=== PATIENT | female | born 1965 | race Caucasian/White ===

== ENCOUNTER 2017-06-08 20:00 | Emergency (ER) | payer OTHER ==
[2017-06-08 20:50] VITALS: BP 111/72; PULSE 70; TEMP 98.7; BMI 21.7
--- NOTE | 2017-06-08 21:15 | PDOC ---
History of Present Illness - General Chief Complaint: Injury Stated Complaint: RIGHT FOOT INJURY Time Seen by Provider: 06/08/17 20:32 - History of Present Illness Initial Comments: This 52-year-old woman with a history of asthma/anxiety/bipolar disorder and chronic lower back pain/neuropathy presents with injury to her right ankle. Injury occurred 4 days ago when patient arose from a crouching position. When she stood up, her right foot was completely numb and she subsequently everted the ankle. After this, she had pain/swelling in the lateral ankle with pain on weightbearing. She did not seek medical care at that time but did elevate and ice the ankle joint. She presents tonight because she has persistent pain and swelling in the ankle. She also has noted some bruising in the heel area. No previous history of right ankle/foot injury. She denies any change in sensation /numbness or paresthesias now. Past History - Past Medical History Allergies/Adverse Reactions: Allergies Allergy/AdvReac Type Severity Reaction Status Date / Time codeine [Codeine] Allergy Verified 07/18/16 20:52 Penicillins Allergy Verified 07/18/16 20:52 Home Medications: Ambulatory Orders Risperidone [Risperdal -] 1 mg PO HS 05/10/12 Venlafaxine HCl [Effexor -] 175 mg PO HS 05/10/12 Clonazepam [Klonopin] 2 mg PO BID 06/08/17 Gabapentin [Neurontin] 300 mg PO QID 06/08/17 Ibuprofen 600 mg PO TID PRN 06/08/17 Oxycodone HCl [Oxaydo] 7.5 mg PO BID PRN 06/08/17 Anemia: Yes Asthma: Yes Cancer: No Cardiac Disorders: No CVA: No COPD: No CHF: No Dementia: No Diabetes: No GI Disorders: Yes (GALLBLADDER POLYP) Disorders: No HTN: No Hypercholesterolemia: Yes Liver Disease: Yes (FATTY LIVER) Psychiatric Problems: Yes (BIPOLAR/ANXIETY) Seizures: No Thyroid Disease: No Other medical history: CHRONIC BACK PAIN, NEUROPATHY - Surgical History Abdominal Surgery: No Appendectomy: No Cardiac Surgery: No Cholecystectomy: No Lung Surgery: No Neurologic Surgery: No Orthopedic Surgery: No - Immunization History Td Vaccination: Yes Immunization Up to Date: No - Suicide/Smoking/Psychosocial Hx Smoking Status: Yes Smoking History: Current every day smoker Number of Cigarettes Smoked Daily: 20 Information on smoking cessation initiated: Yes 'Breaking Loose' booklet given: 07/18/16 Hx Alcohol Use: No Drug/Substance Use Hx: No Substance Use Type: Opiates, Prescribed Hx Substance Use Treatment: No Review of Systems - Review of Systems Able to Perform ROS?: Yes Comments:: 12 point review of systems is negative except for what is noted in the history of present illness *Physical Exam - Vital Signs Last Vital Signs Temp Pulse Resp BP Pulse Ox 98.7 F 70 18 111/72 97 06/08/17 20:30 06/08/17 20:30 06/08/17 20:30 06/08/17 20:30 06/08/17 20:30 - Physical Exam Comments: GENERAL: Adult female, alert and oriented 3, in no acute distress HEAD: Normal with no signs of trauma. EYES: PERRLA, EOMI, sclera anicteric, conjunctiva clear. ENT: Ears normal, nares patent, oropharynx clear without exudates. Dry mucous membranes. NECK: Normal range of motion, supple without lymphadenopathy, JVD, or masses. LUNGS: Breath sounds equal, clear to auscultation bilaterally. No wheezes, and no crackles. HEART:Regular rate and rhythm, normal S1 and S2 without murmur, rub or gallop. ABDOMEN:.normal bowel sounds No guarding,tenderness or rebound.No masses No distention. EXTREMITIES: Right lower extremitymoderate edema/mild tenderness/no deformity/ faint ecchymosis of lateral malleolus ankle No edema/tenderness/ deformity/ecchymosis of foot Distal extremities warm and dry with excellent capillary refill Remainder of the extremity exam is normal NEUROLOGICAL: Cranial nerves II through XII grossly intact. Normal speech. No focal neurological deficits. MUSCULOSKELETAL: Back non-tender to palpation, no CVA tenderness SKIN: Warm, Dry, normal turgor, no rashes or lesions noted. Right ankle/foot x-ray performed and interpreted by Dr. Delatorre of the radiology staff : small calcaneal spur and osteoarthritic changes in the third medical tarsals/phalangeal joint area. There is no evidence of acute fracture or dislocation noted in the ankle or foot. Progress Note - Progress Note Progress Note: Ankle stirrup splint applied. Neurovascular function intact after application of the splint Patient was also given Gato wrap to use during the day as needed The patient should continue elevation of the ankle as much as possible over the next several days and use the splint during the day for the next week. Patient does not have an orthopedist. She was given the Latrice calderon referral information for follow-up if she has persistent pain/swelling in the ankle or foot after 7-10 days *DC/Admit/Observation/Transfer Diagnosis at time of Disposition: Right ankle sprain Qualifiers: Encounter type: sequela Involved ligament of ankle: unspecified ligament Qualified Code(s): S93.401S - Sprain of unspecified ligament of right ankle, sequela - Discharge Dispostion Disposition: HOME Condition at time of disposition: Stable - Referrals Referrals: Dave Pollard MD [Staff Physician] - 14 days Sharee Robles [Primary Care Provider] - - Patient Instructions Printed Discharge Instructions: DI for Ankle Sprain, Smoking Cessation Additional Instructions: Continue elevation of right lower leg Ankle splint/Gato wrap during the day for the next week Motrin 600 mg every 4 to 6 hours as needed; always take with food Follow-up with orthopedist (Dr. Latrice calderon) if you have persistent symptoms
== END 2017-06-08 22:41 | disposition home or self-care (01) ==
LOC: FER 20:00
PROC: 2W3QX1Z Immobilization of Right Lower Leg using Splint (ICD-10-PCS; principal; 2017-06-08)
DX: S93.401S Sprain of unspecified ligament of right ankle, sequela (principal); X58.XXXS Exposure to other specified factors, sequela; Y93.89 Activity, other specified; Y92.9 Unspecified place or not applicable; J45.909 Unspecified asthma, uncomplicated; K76.0 Fatty (change of) liver, not elsewhere classified; F17.210 Nicotine dependence, cigarettes, uncomplicated; F31.9 Bipolar disorder, unspecified
CPT/HCPCS: 73610-TC-RT; 73630-TC-RT; 99281-25

== ENCOUNTER 2018-05-15 19:17 | Emergency (ER) | payer OTHER ==
--- NOTE | 2018-05-15 19:28 | PDOC ---
History of Present Illness - General History Source: Patient Exam Limitations: No Limitations - History of Present Illness Initial Comments: 05/15/18 20:09 The patient is a 42 year old female, with a significant PMH of anemia, asthma, gallbladder polyp, HLD,fatty liver, bipolar, anxiety, chronic neck and back pain ,who presents to the emergency department with right wrist pain that began yesterday. The patient states she slipped on wet leaves and fell down a flight of brick stairs injuring her right wrist that radiates to her right arm. The patient reports losing LOC for a second and notes head feels foggy. She also mentions associated symptoms of lightheadedness, headache, neck and back pain, no relief with Ibuprofen. The patient denies chest pain, shortness of breath, numbness and tingling. Denies fever, chills, nausea, vomit. Allergies: codeine, Penicillins Past surgical history: None reported Social history: Current everyday smoker, opiates user (prescribed) but denies alcohol abuse. PCP: Sharee Robles <Marleni Cali - Last Filed: 05/15/18 20:25> <Sarita Wright - Last Filed: 05/16/18 00:20> - General Chief Complaint: Injury Stated Complaint: FELL DOWN STAIRS YESTERDAY,INJURY TO RIGHT WRIST Time Seen by Provider: 05/15/18 19:19 Past History <Marleni Cali - Last Filed: 05/15/18 20:25> - Past Medical History Anemia: Yes Asthma: Yes Cancer: No Cardiac Disorders: No CVA: No COPD: No CHF: No Dementia: No Diabetes: No GI Disorders: Yes (GALLBLADDER POLYP) Disorders: No HTN: No Hypercholesterolemia: Yes Liver Disease: Yes (FATTY LIVER) Psychiatric Problems: Yes (BIPOLAR/ANXIETY) Seizures: No Thyroid Disease: No - Surgical History Abdominal Surgery: No Appendectomy: No Cardiac Surgery: No Cholecystectomy: No Lung Surgery: No Neurologic Surgery: No Orthopedic Surgery: No - Immunization History Td Vaccination: Yes Immunization Up to Date: No - Suicide/Smoking/Psychosocial Hx Smoking Status: Yes Smoking History: Current every day smoker Number of Cigarettes Smoked Daily: 20 'Breaking Loose' booklet given: 07/18/16 Hx Alcohol Use: No Drug/Substance Use Hx: No Substance Use Type: Opiates, Prescribed Hx Substance Use Treatment: No <KyleSarita Schneider - Last Filed: 05/16/18 00:20> - Past Medical History Allergies/Adverse Reactions: Allergies Allergy/AdvReac Type Severity Reaction Status Date / Time codeine [Codeine] Allergy Verified 07/18/16 20:52 Penicillins Allergy Verified 07/18/16 20:52 Home Medications: Ambulatory Orders Risperidone [Risperdal -] 1 mg PO HS 05/10/12 Venlafaxine HCl [Effexor -] 175 mg PO HS 05/10/12 Clonazepam [Klonopin] 2 mg PO BID 06/08/17 Gabapentin [Neurontin] 300 mg PO QID 06/08/17 Ibuprofen 600 mg PO TID PRN 06/08/17 Oxycodone HCl [Oxaydo] 7.5 mg PO BID PRN 06/08/17 Diclofenac Sodium [Voltaren -] 75 mg PO BID PRN #20 tablet. 05/15/18 Review of Systems - Review of Systems Able to Perform ROS?: Yes Comments:: 05/15/18 20:12 GENERAL/CONSTITUTIONAL: No fever or chills. No weakness. HEAD, EYES, EARS, NOSE AND THROAT: No change in vision. No ear pain or discharge. No sore throat. CARDIOVASCULAR: No chest pain or shortness of breath. RESPIRATORY: No cough, wheezing, or hemoptysis. GASTROINTESTINAL: No nausea, vomiting, diarrhea or constipation. GENITOURINARY: No dysuria, frequency, or change in urination. MUSCULOSKELETAL:+Right wrist pain, +Neck pain, +back pain. SKIN: No rash NEUROLOGIC: +headache. No vertigo, loss of consciousness, or change in strength/ sensation. ENDOCRINE: No increased thirst. No abnormal weight change. HEMATOLOGIC/LYMPHATIC: No anemia, easy bleeding, or history of blood clots. ALLERGIC/IMMUNOLOGIC: No hives or skin allergy <Marleni Cali - Last Filed: 05/15/18 20:25> *Physical Exam - Vital Signs Last Vital Signs Temp Pulse Resp BP Pulse Ox 98.4 F 68 16 129/86 100 05/15/18 19:24 05/15/18 19:24 05/15/18 19:24 05/15/18 19:24 05/15/18 19:24 - Physical Exam Comments: 05/15/18 20:13 GENERAL: Awake, alert, and fully oriented, in no acute distress HEAD: No signs of trauma EYES: PERRLA, EOMI, sclera anicteric, conjunctiva clear ENT:Auricles normal inspection, hearing grossly normal, nares patent, oropharynx clear without exudates. Moist mucosa NECK: + Negative midline tenderness C3-C5. +Mild bilateral tenderness to the paraspinal cervical muscles. LUNGS: Breath sounds equal, clear to auscultation bilaterally. No wheezes, and no crackles HEART: Regular rate and rhythm, normal S1 and S2, no murmurs, rubs or gallops ABDOMEN: Soft, nontender, normoactive bowel sounds. No guarding, no rebound. No masses EXTREMITIES: +Right extremity mild generalized edema of the right hand and fingers. Mild deformity lateral to the ulnar styloid process. Mild edema to the wrist. Mild pain with supination and pronation of the arm. +Bilateral knees mild edema with minimal tenderness. No pain with passive or active flexion. NEUROLOGICAL: Cranial nerves II through XII grossly intact. Normal speech, normal gait SKIN:+2 and half cm abrasion to the lateral aspect of the anterior left knee. <Marleni Cali - Last Filed: 05/15/18 20:25> Progress Note - Progress Note Progress Note: Documentation has been prepared under my direction and personally reviewed by me in its entirety. I attest that this documented accurately reflects all work, treatment, procedures and medical decision making performed by me. <Sarita Wright - Last Filed: 05/16/18 00:20> Medical Decision Making - Medical Decision Making As noted above, this 53-year-old woman presents with a history of slipping and falling down outside brick staircase (approximately 5 stairs), falling onto concrete surface, yesterday. No clear LOC; patient was walking alone but was able to get up without assistance. She has headache, sleepiness, neck pain and right wrist discomfort. Exam as noted. Noncontrast head CT and cervical spine CT performed to evaluate for acute intracranial process or cervical spine injury. Head CT is essentially normal. Cervical spine CT shows straightening of the lordotic curve but no other significant abnormalities. Right wrist/right forearm x-rays performed. Preliminary interpretation by me: No evidence of fracture or dislocation. Clinical presentation most consistent with cervical sprain, mild concussion, right wrist and bilateral anterior knee contusions. Toradol 60 mg IM given for analgesia/anti-inflammatory properties Patient was given removable wrist splint to be used during the day for the next week. Patient states that she has an orthopedist with whom she can follow-up if she has persistent pain or swelling. Cervical soft collar also given to the patient to be used as needed. Patient asked for anti-inflammatory other than ibuprofen since she found the latter ineffective today. Prescription for diclofenac 75 mg up to twice a day as needed for pain (taken with food) sent to pharmacy. Patient was asked if she knew that she had a thyroid nodule since one was seen on her cervical spine CT. Patient states that she had never been told she had a thyroid nodule. She is been strongly advised to follow-up with her doctor within the next week for workup of this nodule. <Sarita Wright - Last Filed: 05/16/18 00:20> *DC/Admit/Observation/Transfer - Attestations Scribe Attestion: 05/15/18 20:13 Documentation prepared by Marleni Cali, acting as medical staff services manager for Sarita Wright MD. <Marleni Cali - Last Filed: 05/15/18 20:25> <Sarita Wright - Last Filed: 05/16/18 00:20> Diagnosis at time of Disposition: Neck muscle strain Qualifiers: Encounter type: initial encounter Qualified Code(s): S16.1XXA - Strain of muscle, fascia and tendon at neck level, initial encounter Contusion of right wrist Qualifiers: Encounter type: initial encounter Qualified Code(s): S60.211A - Contusion of right wrist, initial encounter Knee contusion Qualifiers: Encounter type: initial encounter Laterality: unspecified laterality Qualified Code(s): S80.00XA - Contusion of unspecified knee, initial encounter - Discharge Dispostion Disposition: HOME Condition at time of disposition: Stable - Prescriptions Prescriptions: Diclofenac Sodium [Voltaren -] 75 mg PO BID PRN #20 tablet.dr DOW Reason: Moderate Pain - Referrals Referrals: Sharee Robles [Primary Care Provider] - 1 week - Patient Instructions Printed Discharge Instructions: DI for Neck Sprain Additional Instructions: Diclofenac 75 mg twice a day as needed for pain; take with food Ice/elevate right wrist as much as possible over the next 48 hours Removable wrist splint during the day for the next week Follow-up with your orthopedist if you have persistent pain/swelling in the wrist Soft neck collar as needed Follow-up with Dr. Robles within the next week for follow-up of thyroid nodule as discussed Return to ER via worsening headache or severe neck/wrist pain - Post Discharge Activity
[2018-05-15 19:30] VITALS: BP 129/86; PULSE 68; TEMP 98.4; BMI 20.3
[2018-05-15] MEDS ORDERED: KETOROLAC TROMETHAMINE 60 MG/2 ML VIAL IM ONE (21:27)
[2018-05-15] MEDS ORDERED: KETOROLAC TROMETHAMINE 60 MG/2 ML VIAL ONE (21:31)
== END 2018-05-15 21:42 | disposition home or self-care (01) ==
LOC: FER 19:17
PROC: 2W3CX1Z Immobilization of Right Lower Arm using Splint (ICD-10-PCS; principal; 2018-05-15)
PROC: 3E0233Z Introduction of Anti-inflammatory into Muscle, Percutaneous Approach (ICD-10-PCS; 2018-05-15)
DX: S80.00XA Contusion of unspecified knee, initial encounter (principal); S60.211A Contusion of right wrist, initial encounter; S16.1XXA Strain of muscle, fascia and tendon at neck level, initial encounter; W10.9XXA Fall (on) (from) unspecified stairs and steps, initial encounter; Y93.89 Activity, other specified; Y92.9 Unspecified place or not applicable; J45.909 Unspecified asthma, uncomplicated; E78.5 Hyperlipidemia, unspecified; F31.9 Bipolar disorder, unspecified; G89.29 Other chronic pain
CPT/HCPCS: 70450-TC; 72125-TC; 73090-TC-RT-FY; 73110-TC-RT-FY; 99281-25

== ENCOUNTER 2018-09-16 19:33 | Emergency (ER) | payer OTHER ==
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
[2018-09-16 19:59] VITALS: BP 151/83; PULSE 80; TEMP 97.7; BMI 20.5
[2018-09-16 20:11] LABS: URINE APPEARANCE Clear; URINE BILIRUBIN Negative (NEGATIVE); URINE COLOR Yellow; URINE GLUCOSE (UA) Negative (NEGATIVE); URINE KETONE Negative (NEGATIVE); URINE LEUK ESTERASE TRACE (NEGATIVE); URINE NITRITE Negative (NEGATIVE); URINE PROTEIN Negative (NEGATIVE); URINE UROBILINOGEN 0.2 (0.2-1.0)
[2018-09-16 20:48] LABS: EPI CELLS FEW /HPF; URINE RBC 0-2 /hpf (0-3)
== END 2018-09-16 21:30 | disposition short-term general hospital (02) ==
LOC: FER 19:33
DX: T76.21XA Adult sexual abuse, suspected, initial encounter (principal); F17.210 Nicotine dependence, cigarettes, uncomplicated; F31.9 Bipolar disorder, unspecified; J45.909 Unspecified asthma, uncomplicated; E78.00 Pure hypercholesterolemia, unspecified
CPT/HCPCS: 81003; 81015; 99281-25

== ENCOUNTER 2018-11-04 15:23 | Emergency (ER) | payer OTHER ==
--- NOTE | 2018-11-04 15:29 | PDOC ---
History of Present Illness - General Chief Complaint: Pain Stated Complaint: FINGER PAIN, RASH, L CALF PAIN Time Seen by Provider: 11/04/18 15:28 - History of Present Illness Initial Comments: 11/04/18 15:33 53 year old woman with a history of chronic back pain, bipolar disorder/anxiety , anemia, asthma wh opresents wity h R middle digit swelling and pain for 3 days L calf pain and swelling for 10 days whcich occurred after L 5th toe fracture rash on bilateral antecubital fossa and chest that subjective fever, chills, nausea since yesterday smokes cigarettes half pack a day Past History - Past Medical History Allergies/Adverse Reactions: Allergies Allergy/AdvReac Type Severity Reaction Status Date / Time Penicillins Allergy Unknown Verified 11/04/18 15:41 codeine [Codeine] Allergy Verified 11/04/18 15:41 Home Medications: Ambulatory Orders Clonazepam [Klonopin] 2 mg PO BID 06/08/17 Cyclobenzaprine HCl [Flexeril 10 mg] 10 mg PO HS 11/04/18 Gabapentin [Neurontin] 300 mg PO BID 11/04/18 Gabapentin [Neurontin] 600 mg PO HS 11/04/18 Quetiapine Fumarate [Seroquel -] 50 mg PO HS PRN 11/04/18 Sulfamethoxazole/Trimethoprim [Bactrim Ds -] 1 tab PO BID #14 tablet 11/04/18 Venlafaxine HCl ER [Effexor Xr -] 225 mg PO HS 11/04/18 Zolpidem Tartrate [Ambien] 10 mg PO HS PRN 11/04/18 hydrOXYzine HCL [Atarax -] 25 mg PO HS 11/04/18 Anemia: Yes Asthma: Yes Cancer: No Cardiac Disorders: No CVA: No COPD: No CHF: No Dementia: No Diabetes: No GI Disorders: Yes (GALLBLADDER POLYP) Disorders: No HTN: No Hypercholesterolemia: Yes Liver Disease: Yes (FATTY LIVER) Psychiatric Problems: Yes (BIPOLAR/ANXIETY) Seizures: No Thyroid Disease: No - Surgical History Abdominal Surgery: No Appendectomy: No Cardiac Surgery: No Cholecystectomy: No Lung Surgery: No Neurologic Surgery: No Orthopedic Surgery: No - Immunization History Td Vaccination: Yes Immunization Up to Date: No - Suicide/Smoking/Psychosocial Hx Smoking Status: Yes Smoking History: Current every day smoker Have you smoked in the past 12 months: Yes Number of Cigarettes Smoked Daily: 20 'Breaking Loose' booklet given: 07/18/16 Hx Alcohol Use: No Drug/Substance Use Hx: No Substance Use Type: Opiates, Prescribed Hx Substance Use Treatment: No *Physical Exam - Physical Exam Comments: 11/04/18 16:15 + macupapular erythematous rash on anticubital fossas bilaterally and on chest R middle finger swelling erythema nad warmth from DIP to fingerstip purulent fluid collection on under side and along L lateral nailbed L calf slightly more enlarged than R and with positibe sylvie sign NV intact palpatble pulses Procedures - Incision and Drainage I&D Site: Right: Paronychia (felon ) Betadine cleansed: No (alcohol used) Anesthesia: 1% Lidocaine Volume(ml): 6 Blade Size: 11 Attempts: 1 Plain Packing: No Complications: none Dressing: Yes (gauze) - Additional Procedures Additional Procedures: other (digital block) Medical Decision Making - Medical Decision Making 11/04/18 16:16 ED Course: Finger swelling consider felon vs paronychia calf swelling r/o dvt rash consider eczema 11/04/18 18:20 ultrasound negative finger with felon will I&D *DC/Admit/Observation/Transfer Diagnosis at time of Disposition: Rash and nonspecific skin eruption, Felon of finger of right hand Calf pain Qualifiers: Laterality: left Qualified Code(s): M79.662 - Pain in left lower leg - Discharge Dispostion Disposition: HOME Condition at time of disposition: Fair Decision to Admit order: No - Prescriptions Prescriptions: Sulfamethoxazole/Trimethoprim [Bactrim Ds -] 1 tab PO BID #14 tablet - Referrals Referrals: Sharee Robles [Primary Care Provider] - Bob Pedersen MD [Staff Physician] - - Patient Instructions Printed Discharge Instructions: DI for Paronychia, DI for Incision and Drainage of a Skin Abscess Additional Instructions: You were seen in the ED for complaints of R finger swelling, L calf swelling and arm rash. In the ED you were evaluated with ultrasound that did not show any significant findings. 1) Your finger was significant for signs of infection on physical exam and you had an incision and drainage performed. You were started on antibiotics and should continue to take them twice a day for 7 days. You can wash your finger with soap and water and are advised to keep the wound clean and covered. Do not get your nails done or cut until your finger is healed. You are advised to follow up with your Primary Care Physician within 1 week. You have been given a referral with Hand Surgery and are advised to follow up within 1 week. 2) Please avoid itching your rash and take over the counter Benadryl to help relieve symptoms of itching or irritation. 3) For your calf pain, continue to follow up with Orthopedics. Return to the ED immediately if you experience worsening pain in the finger, continued drainage of blood or pus, change in color of the finger, numbness or tingling of the finger or hand or fever. - Post Discharge Activity
[2018-11-04 16:01] VITALS: BP 120/87; PULSE 73; TEMP 98.3; BMI 23.6
--- NOTE | 2018-11-04 16:20 | PDOC ---
Attending Attestation - Resident Resident Name: Erin Pruitt - ED Attending Attestation I have performed the following: I have examined & evaluated the patient, The case was reviewed & discussed with the resident, I agree w/resident's findings & plan, Exceptions are as noted - HPI HPI: 11/04/18 16:19 53y F hx of bipolar disorder, asthma, presents with multiple complaints 1) finger swelling/pain since thursday - pt notse she has had increased R middle finger pain for the past 3 days with gradually more pain/swelling. no recent trauma, but pt notes she had new gel nails placed a few weeks ago, but was fine until thursday. Since then she noticed some irritation pain that has been getting worse. denies biting her nail or recent injury/nail procedure in the several days preceding onset of pain. exam - R milddle finger exam: erhtnema/induration/swelling without signficiant warmth of tip of R middle finger, no vesicles appreciated a/p - felon noted with whitish head at tip of R middle finger 2) Calf pain x 9 days. Pt ntoes she had a toe fracture x 1- days of her L great toe - she has been having increased pain/swelling in her L calf particularly after she is walking on it alot. rest resolves her pain. denies associated sob, hemoptysis, cp, back pain, numnbess/tingling. exam: LLE - mild L calf tenderness, no swelling appreciated, neg homans sign. suspect over use injury vs dvt a/p awaiting US to r/o DVT motrin/tylenol as needed 3) rash for sevearl days after going to tanning salon and applying a lotion, itching primarily to abdomen, flexor sorfaces of b/l arms and neck. no pain, just sigifincat pruritis exam: skin - flexor surfaces - skin thickening and excoiations on R anticubital fossa , no other rashes apprciated, mild irretation/skin thickening on L flexor surfaces/anticubital fossa, and neck. 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
[2018-11-04] MEDS ORDERED: LIDOCAINE HCL 1%, 10 MG/ML (20ML VIAL) ONE (18:07)
[2018-11-04] MEDS ORDERED: SULFAMETHOXAZOLE/TRIMETHOPRIM 800MG/160MG D.S. TABLET PO ONE (18:22)
[2018-11-04] MEDS ORDERED: SULFAMETHOXAZOLE/TRIMETHOPRIM 800MG/160MG D.S. TABLET ONE (18:32)
== END 2018-11-04 18:58 | disposition home or self-care (01) ==
LOC: FER 15:23
PROC: 0H9FXZZ Drainage of Right Hand Skin, External Approach (ICD-10-PCS; principal; 2018-11-04)
DX: L03.011 Cellulitis of right finger (principal); R21 Rash and other nonspecific skin eruption; M79.662 Pain in left lower leg; F31.9 Bipolar disorder, unspecified; F41.9 Anxiety disorder, unspecified; J45.909 Unspecified asthma, uncomplicated; M54.5 Low back pain; G89.29 Other chronic pain; D64.9 Anemia, unspecified; F17.210 Nicotine dependence, cigarettes, uncomplicated; K76.2 Central hemorrhagic necrosis of liver; Z88.0 Allergy status to penicillin; Z88.5 Allergy status to narcotic agent
CPT/HCPCS: 93970-TC; 99282-25

== ENCOUNTER 2018-12-20 16:03 | Emergency (ER) | payer OTHER ==
[2018-12-20 16:13] VITALS: BP 118/83; PULSE 63; TEMP 98; BMI 21.2
[2018-12-20] MEDS ORDERED: DIPHTH,PERTUSS(ACELL),TET 0.5 ML DISP.SYRIN IM ONE ×2 (16:33→16:37)
--- NOTE | 2018-12-20 16:33 | PDOC ---
History of Present Illness - General Chief Complaint: Injury Stated Complaint: laceration to left eye lid s/p injury at home Time Seen by Provider: 12/20/18 16:15 History Source: Patient Exam Limitations: No Limitations - History of Present Illness Initial Comments: 12/20/18 16:20 53-year-old hx of anemia, astham, hl, presents with complaint of head injury. 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 Patient notes that there was some bleeding she denies any LOC, nausea, vomiting, vision changes, neck pain, numbness/tingling/ weakness, no other injuries. pt on ASA. pt denies any current headache. no other complaints does not rmember her last tetanus shot Past History - Past Medical History Allergies/Adverse Reactions: Allergies Allergy/AdvReac Type Severity Reaction Status Date / Time Penicillins Allergy Unknown Verified 12/20/18 16:05 codeine [Codeine] Allergy Verified 12/20/18 16:05 Home Medications: Ambulatory Orders Clonazepam [Klonopin] 2 mg PO BID 06/08/17 Cyclobenzaprine HCl [Flexeril 10 mg] 10 mg PO HS 11/04/18 Gabapentin [Neurontin] 300 mg PO BID 11/04/18 Gabapentin [Neurontin] 600 mg PO HS 11/04/18 Quetiapine Fumarate [Seroquel -] 50 mg PO HS PRN 11/04/18 Sulfamethoxazole/Trimethoprim [Bactrim Ds -] 1 tab PO BID #14 tablet 11/04/18 Venlafaxine HCl ER [Effexor Xr -] 225 mg PO HS 11/04/18 Zolpidem Tartrate [Ambien] 10 mg PO HS PRN 11/04/18 hydrOXYzine HCL [Atarax -] 25 mg PO HS 11/04/18 Anemia: Yes Asthma: Yes Cancer: No Cardiac Disorders: No CVA: No COPD: No CHF: No Dementia: No Diabetes: No GI Disorders: Yes (GALLBLADDER POLYP) Disorders: No HTN: No Hypercholesterolemia: Yes Liver Disease: Yes (FATTY LIVER) Psychiatric Problems: Yes (BIPOLAR/ANXIETY) Seizures: No Thyroid Disease: No - Surgical History Abdominal Surgery: No Appendectomy: No Cardiac Surgery: No Cholecystectomy: No Lung Surgery: No Neurologic Surgery: No Orthopedic Surgery: No - Immunization History Td Vaccination: Yes Immunization Up to Date: No - Suicide/Smoking/Psychosocial Hx Smoking Status: Yes Smoking History: Current every day smoker Have you smoked in the past 12 months: Yes Number of Cigarettes Smoked Daily: 10 Information on smoking cessation initiated: Yes 'Breaking Loose' booklet given: 07/18/16 Hx Alcohol Use: No Drug/Substance Use Hx: No Substance Use Type: Opiates, Prescribed Hx Substance Use Treatment: No Review of Systems - Review of Systems Able to Perform ROS?: Yes Comments:: 12/20/18 16:35 Skin: laceration on head Abd: deneis n/v neuro: no numbness/tingling/weakness, vision changes neck: denies neck pain *Physical Exam - Vital Signs Last Vital Signs Temp Pulse Resp BP Pulse Ox 98 F 63 18 118/83 99 12/20/18 16:05 12/20/18 16:05 12/20/18 16:05 12/20/18 16:05 12/20/18 16:05 - Physical Exam Comments: 12/20/18 16:36 GENERAL: The patient is awake, alert, and fully oriented, Nontoxic - in no acute distress. HEAD: Normocephalic, superficial 1.5cm horizontal laceration over L latearl supraorbital ridge. no focal bony tenderness, no active bleeding Procedures - Consent Consent obtained: Verbal - Laceration/Wound Repair Left Upper Eye Wound Length: to 2.5 cm Wound Explored: clean Wound's Depth, Shape: superficial Irrigated w/ Saline: Yes Wound Repaired With: Dermabond Medical Decision Making - Medical Decision Making 12/20/18 16:38 53y F presenting with laceration over her left supraorbital ridge peasuring approx 1.5 cm area is clean, no focal bony tenderness, normal neuro exam area cleaned/irrigated, no fb noted, margins clean/even dermabonded with good approximation will update tentanus will dc with supportive care I discussed the physical exam findings, ancillary test results and final diagnoses with the patient. I answered all of the patient's questions. The patient was satisfied with the care received and felt comfortable with the discharge plan and treatment plan. The patient will call their primary care physician within 24 hours to arrange follow-up and will return to the Emergency Department with any new, persistent or worsening symptoms. *DC/Admit/Observation/Transfer Diagnosis at time of Disposition: Laceration of face Qualifiers: Encounter type: initial encounter Qualified Code(s): S01.81XA - Laceration without foreign body of other part of head, initial encounter - Discharge Dispostion Disposition: HOME Condition at time of disposition: Improved Decision to Admit order: No - Referrals - Patient Instructions Printed Discharge Instructions: DI for Laceration Repair With Dermabond Additional Instructions: Return to the emergency department immediately with ANY new, persistent or worsening symptoms including any redness, bleeding, purulent discharge, swelling or other concerns. Keep the area clean and dry for 48 hours. Afterwards he may clean gently with soap and water. Apply bacitracin twice a day. Keep the area away from the sun for the next 9 months, please use sunscreen and wear a hat if you need to be in the sun to improve appearance of the scar. Return in 3-5 days for suture removal. You MUST call and follow up with your doctor tomorrow for further evaluation of your symptoms. Results were discussed with you. Please make sure your doctor reviews the results of your emergency evaluation. - Post Discharge Activity
== END 2018-12-20 16:57 | disposition home or self-care (01) ==
LOC: FER 16:03
PROC: 3E0234Z Introduction of Serum, Toxoid and Vaccine into Muscle, Percutaneous Approach (ICD-10-PCS; principal; 2018-12-20)
DX: S01.112A Laceration without foreign body of left eyelid and periocular area, initial encounter (principal); W20.8XXA Other cause of strike by thrown, projected or falling object, initial encounter; Y93.89 Activity, other specified; Y92.000 Kitchen of unspecified non-institutional (private) residence as the place of occurrence of the external cause; J45.909 Unspecified asthma, uncomplicated; F31.9 Bipolar disorder, unspecified; F41.9 Anxiety disorder, unspecified; K76.0 Fatty (change of) liver, not elsewhere classified; E78.5 Hyperlipidemia, unspecified
CPT/HCPCS: 90715; 99282-25

== ENCOUNTER 2019-10-05 10:17 | Emergency (ER) | payer OTHER ==
[2019-10-05 10:30] VITALS: BP 123/81; PULSE 68; TEMP 98; BMI 20.9
--- NOTE | 2019-10-05 10:57 | PDOC ---
History of Present Illness - General Chief Complaint: Headache Stated Complaint: HEADACHE Time Seen by Provider: 10/05/19 10:25 - History of Present Illness Initial Comments: 10/05/19 11:03 Chief complaint: Headache HPI: Intermittent occipital headache combined with tightness of the neck and shoulders for several days. Has been feeling increased stress due to mother who is dying of dementia and brother who has cancer. She is visiting mother in the intermediate and caring for her brother at home. A few days ago after a long drive she felt lightheaded for short period of time, also her thinking was somewhat cloudy. This resolved. Review of systems: Denies fever/chills, URI symptoms, sore throat, cough, chest pain, shortness of breath, abdominal pain, nausea, vomiting, diarrhea, visual or focal neurologic symptoms, unsteadiness of gait. Remainder of systems reviewed and negative Past medical history: Bipolar illness, migraine headaches which are controlled with Excedrin Migraine. Social history: Bipolar symptoms are well controlled on medication. The patient has a therapist whom she sees weekly. She has also been exercising regularly, 5 times per week, for the last 2 years, and finds that helpful for stress. No tobacco alcohol or other drugs. Functioning well Family history: Reviewed and noncontributory including early coronary artery disease, metabolic diseases including diabetes, neurologic diseases, cancer. Physical exam: Alert and oriented well-developed well-nourished no acute distress cheerful and cooperative Afebrile, vital signs normal PERRLA 4 mm, fundi benign with sharp disc margins and good central venous pulsations. Visual pride intact to confrontation. EOMs full without diplopia ENT clear Neck supple without bruit mass or nodes Lungs clear, full breath sounds bilaterally, no wheezes rales or rhonchi CV S1-S2 normal without murmur rub or gallop pulses full and symmetric no JVD or edema no bruits. Regular rate Abdomen soft nontender without mass organomegaly Neurological C2 to 12 intact. Strength full and symmetric. No focal sensorimotor deficits. Cerebellar function intact. Gait stable and unimpaired Extremities no CCE Skin clear, no rash, adequate turgor and wet mucous membranes Musculoskeletal: There is slight tension in the muscles of the lateral neck and trapezius areas. Impression: Occipital headache, mild, intermittent, probably resulting from stress/tension/muscle contraction. This is distinct from her migraines, which have been controlled. No sign of other neurologic disease. Plan: Relaxation techniques, rest, heat to the muscles of the neck and shoulders , Tylenol as needed. Discussed with therapist. See neurologist if no improvement or conditions worsen, or return to emergency room for further evaluation. No distress upon discharge. Past History - Past Medical History Allergies/Adverse Reactions: Allergies Allergy/AdvReac Type Severity Reaction Status Date / Time Penicillins Allergy Unknown Verified 10/05/19 10:19 codeine [Codeine] Allergy Verified 10/05/19 10:19 Home Medications: Ambulatory Orders Clonazepam [Klonopin] 2 mg PO BID 06/08/17 Cyclobenzaprine HCl [Flexeril 10 mg] 10 mg PO HS 11/04/18 Gabapentin [Neurontin] 300 mg PO BID 11/04/18 Gabapentin [Neurontin] 600 mg PO HS 11/04/18 Quetiapine Fumarate [Seroquel -] 50 mg PO HS PRN 11/04/18 Venlafaxine HCl ER [Effexor Xr -] 225 mg PO HS 11/04/18 Zolpidem Tartrate [Ambien] 10 mg PO HS PRN 11/04/18 hydrOXYzine HCL [Atarax -] 25 mg PO HS 11/04/18 Dupilumab [Dupixent] 300 mg SQ BID 10/05/19 Anemia: Yes Asthma: Yes Cancer: No Cardiac Disorders: No CVA: No COPD: No CHF: No Dementia: No Diabetes: No GI Disorders: Yes (GALLBLADDER POLYP) Disorders: No HTN: No Hypercholesterolemia: Yes Liver Disease: Yes (FATTY LIVER) Psychiatric Problems: Yes (BIPOLAR/ANXIETY) Seizures: No Thyroid Disease: No - Surgical History Abdominal Surgery: No Appendectomy: No Cardiac Surgery: No Cholecystectomy: No Lung Surgery: No Neurologic Surgery: No Orthopedic Surgery: No - Immunization History Td Vaccination: Yes Immunization Up to Date: No - Psycho Social/Smoking Cessation Hx Smoking Status: Yes Smoking History: Current every day smoker Have you smoked in the past 12 months: Yes Number of Cigarettes Smoked Daily: 20 Information on smoking cessation initiated: Yes 'Breaking Loose' booklet given: 07/18/16 Hx Alcohol Use: No Drug/Substance Use Hx: No Substance Use Type: Opiates, Prescribed Hx Substance Use Treatment: No *Physical Exam - Vital Signs Last Vital Signs Temp Pulse Resp BP Pulse Ox 98 F 68 16 123/81 100 10/05/19 10:19 10/05/19 10:19 10/05/19 10:19 10/05/19 10:19 10/05/19 10:19 Discharge - Discharge Information Problems reviewed: Yes Clinical Impression/Diagnosis: Headache Qualifiers: Headache type: tension-type Headache chronicity pattern: acute headache Intractability: not intractable Qualified Code(s): G44.209 - Tension-type headache, unspecified, not intractable Condition: Stable Disposition: HOME - Admission No - Follow up/Referral Referrals: Kyle Inman DO [Staff Physician] - 1 week - Patient Discharge Instructions Patient Printed Discharge Instructions: Understanding and Managing the Stress Response, Tension Headache - Post Discharge Activity
== END 2019-10-05 11:00 | disposition home or self-care (01) ==
LOC: FER 10:17
DX: G44.209 Tension-type headache, unspecified, not intractable (principal); F17.210 Nicotine dependence, cigarettes, uncomplicated; J45.909 Unspecified asthma, uncomplicated; E78.00 Pure hypercholesterolemia, unspecified; F31.9 Bipolar disorder, unspecified; F41.9 Anxiety disorder, unspecified; K92.9 Disease of digestive system, unspecified; Z88.0 Allergy status to penicillin; Z88.2 Allergy status to sulfonamides
CPT/HCPCS: 99281-25

== ENCOUNTER 2020-12-25 04:46 | Day surgery (SDC) | payer OTHER ==
[2020-12-20 13:45] VITALS: BMI 22.0
[2020-12-25 10:44] VITALS: BP 113/64; PULSE 61; TEMP 98.1
== END 2020-12-25 10:40 | disposition home or self-care (01) ==
LOC: JASU-ENDO 04:46
PROVIDERS: ATTEND Internal Medicine Gastroenterology
PROC: 0DJD8ZZ Inspection of Lower Intestinal Tract, Via Natural or Artificial Opening Endoscopic (ICD-10-PCS; principal; 2020-12-25 10:00)
DX: Z12.11 Encounter for screening for malignant neoplasm of colon (principal); Z80.0 Family history of malignant neoplasm of digestive organs

== ENCOUNTER 2021-03-12 05:23 | Day surgery (SDC) | payer OTHER ==
[2021-03-08 18:57] VITALS: BMI 22.2
[2021-03-12 10:19] VITALS: TEMP 97.6
[2021-03-12 10:43] VITALS: PULSE 61
[2021-03-12 11:00] VITALS: BP 106/64
== END 2021-03-12 11:05 | disposition home or self-care (01) ==
LOC: JASU-ENDO 05:23
PROVIDERS: ATTEND Internal Medicine Gastroenterology
PROC: 0DBP8ZX Excision of Rectum, Via Natural or Artificial Opening Endoscopic, Diagnostic (ICD-10-PCS; principal; 2021-03-12 09:53)
DX: Z12.11 Encounter for screening for malignant neoplasm of colon (principal); Z80.0 Family history of malignant neoplasm of digestive organs; D12.8 Benign neoplasm of rectum

== ENCOUNTER 2021-04-15 14:49 | Emergency (ER) | payer OTHER ==
[2021-04-15 14:56] VITALS: BP 127/76; PULSE 82; TEMP 98.3; BMI 21.2
[2021-04-15] MEDS ORDERED: KETOROLAC TROMETHAMINE 30 MG/1 ML VIAL IM ONE (15:31)
[2021-04-15] MEDS ORDERED: KETOROLAC TROMETHAMINE 30 MG/1 ML VIAL ONE (15:32)
[2021-04-15 16:33] LABS: BASO % 0.8 % (0-2.0); EOS % 0.2 % (0-4.5); HEMATOCRIT 37.5 % (32.4-45.2); HEMOGLOBIN 12.3 GM/dl (10.7-15.3); LYMPH % 20.6 % (8-40); MCH 30.4 pg (25.7-33.7); MCHC 32.8 g/dl (32.0-36.0); MEAN CELL VOLUME 92.7 fl (80-96); MEAN PLT VOLUME 6.9 fl (7.5-11.1); MONO % 5.3 % (3.8-10.2); NEUT % 73.1 % (42.8-82.8); PLATELET COUNT 276 10^3/uL (134-434); RBC 4.05 M/mm3 (3.60-5.2); RDW 13.4 % (11.6-15.6); WHITE BLOOD COUNT 7.1 K/mm3 (4.0-10.8)
[2021-04-15 16:34] LABS: ACTIVATED PTT 29.5 SECONDS (25.2-36.5)
[2021-04-15 16:37] LABS: ALK PHOS 69 U/L (45-117); ANION GAP 9 MMOL/L (8-16); BILIRUBIN,TOTAL 0.5 mg/dl (0.2-1); CALCIUM 9.1 mg/dl (8.5-10); CHLORIDE 97 mmol/L (98-107); CO2 27 mmol/L (21-32); CREATININE 0.7 mg/dl (0.55-1.3); GLUCOSE,RANDOM 84 mg/dl (74-106); SGOT/AST 23 U/L (15-37); SGPT/ALT 22 U/L (13-61); SODIUM 133 mmol/L (136-145); TOT PROT 6.7 g/dl (6.4-8.2)
[2021-04-15 16:39] LABS: INR 1.01 (0.82-1.09); PROTHROMBIN TIME (PATIENT) 11.3 SEC (10.2-13.0)
== END 2021-04-15 18:52 | disposition home or self-care (01) ==
LOC: FER 14:49
PROC: 3E0233Z Introduction of Anti-inflammatory into Muscle, Percutaneous Approach (ICD-10-PCS; principal; 2021-04-15)
DX: S29.011A Strain of muscle and tendon of front wall of thorax, initial encounter (principal); Y93.B9 Activity, other involving muscle strengthening exercises
CPT/HCPCS: 36415; 71046-TC-FY; 80053; 84484; 85025; 85610; 85730; 93005; 96372; 99285-25

== ENCOUNTER 2021-08-23 12:06 | Emergency (ER) | payer OTHER ==
[2021-08-23 12:31] VITALS: BP 114/72; PULSE 72; TEMP 98.8; BMI 20.5
[2021-08-23] MEDS ORDERED: IBUPROFEN 400 MG TABLET (FP) PO ONE ×2 (12:45→12:50)
[2021-08-23] MEDS ORDERED: LIDOCAINE 5% TOPICAL PATCH TP ONE (12:45)
[2021-08-23] MEDS ORDERED: ACETAMINOPHEN 325 MG TABLET (FP) PO ONE (12:45)
[2021-08-23] MEDS ORDERED: LIDOCAINE PATCH REMOVAL MC ONE (12:46)
[2021-08-23] MEDS ORDERED: ACETAMINOPHEN 325 MG TABLET (FP) ONE (12:50)
[2021-08-23] MEDS ORDERED: LIDOCAINE 5% TOPICAL PATCH ONE (12:50)
== END 2021-08-23 13:16 | disposition home or self-care (01) ==
LOC: FER 12:06
DX: S29.012A Strain of muscle and tendon of back wall of thorax, initial encounter (principal); V87.7XXA Person injured in collision between other specified motor vehicles (traffic), initial encounter; Y92.9 Unspecified place or not applicable
CPT/HCPCS: 99283-25

== ENCOUNTER 2022-05-20 04:43 | Day surgery (SDC) | payer OTHER ==
[2022-05-20 08:56] VITALS: TEMP 98; BMI 21.1
[2022-05-20 10:11] VITALS: RESP 14
[2022-05-20 10:19] VITALS: BP 103/65; PULSE 74
== END 2022-05-20 10:26 | disposition home or self-care (01) ==
LOC: JASU-ENDO 04:43
PROVIDERS: ATTEND Internal Medicine Gastroenterology
PROC: 0DB68ZX Excision of Stomach, Via Natural or Artificial Opening Endoscopic, Diagnostic (ICD-10-PCS; 2022-05-20)
PROC: 0DB48ZX Excision of Esophagogastric Junction, Via Natural or Artificial Opening Endoscopic, Diagnostic (ICD-10-PCS; 2022-05-20)
PROC: 0DB98ZX Excision of Duodenum, Via Natural or Artificial Opening Endoscopic, Diagnostic (ICD-10-PCS; principal; 2022-05-20 09:15)
DX: K20.80 Other esophagitis without bleeding (principal)
CPT/HCPCS: 88305-TC; 88342-TC

== ENCOUNTER 2023-01-12 13:34 | Emergency (ER) | payer OTHER ==
[2023-01-12 14:02] VITALS: BP 113/70; PULSE 89; RESP 20; TEMP 98.3; BMI 19.8
[2023-01-12 15:15] LABS: ALBUMIN 3.6 g/dl (3.4-5.0); BILIRUBIN,TOTAL 0.3 mg/dl (0.2-1); CALCIUM 8.7 mg/dl (8.5-10); CREATININE 0.6 mg/dl (0.55-1.3); TOT PROT 6.1 g/dl (6.4-8.2)
[2023-01-12 15:33] LABS: HEMATOCRIT 37.3 % (32.4-45.2); HEMOGLOBIN 12.5 G/dL (10.7-15.3); MCH 31.5 pg (25.7-33.7); MCHC 33.5 g/dl (32.0-36.0); MEAN CELL VOLUME 94.1 fl (80-96); MEAN PLT VOLUME 6.7 fl (7.5-11.1); PLATELET COUNT 269.2 10^3/uL (134-434); RBC 3.96 10^6/uL (3.60-5.2); RDW 15.2 % (11.6-15.6); WHITE BLOOD COUNT 3.5 10^3/uL (4.0-10.8)
[2023-01-12 16:04] LABS: PLATELET ESTIMATE ADEQUATE
== END 2023-01-12 16:22 | disposition home or self-care (01) ==
LOC: FER 13:34
DX: R09.81 Nasal congestion (principal); R07.0 Pain in throat; R05.9 Cough, unspecified; J98.8 Other specified respiratory disorders; R30.0 Dysuria; R53.81 Other malaise; R35.0 Frequency of micturition; Z20.822 Contact with and (suspected) exposure to COVID-19
CPT/HCPCS: 0241U-QW; 36415; 80053; 81003; 85027; 87086; 99283-25